=== PATIENT | male | born 1965 | race Caucasian/White ===

== ENCOUNTER 2024-03-01 09:57 | Emergency (ER) | payer OTHER, SELFPAY ==
--- NOTE | ~2024-03-01 | XR_ITS ---
EXAMINATION: XR lumbar spine min 4V DATE: 03/01/2024 11:14 INDICATION: Back pain. Fall. TECHNIQUE: 5 views of lumbar spine were obtained. COMPARISON: None. FINDINGS: Bone alignment is normal. There is mild chronic anterior wedging of T11 and T12 vertebral b odies. There is mildly decreased disc height at L1-L2 and L4-L5 and severely decreased disc height at L5-S1. There are endplate osteophytes at most levels. There is multilevel facet joint osteoarthritis , severe bilaterally at L5-S1. IMPRESSION: 1. Severe lower lumbar spondylosis. Reviewed, dictated and finalized at location A.
[2024-03-01 10:00] VITALS: BP 164/76; PULSE 63; RESP 16; TEMP 36.6; O2SAT 100
[2024-03-01] MEDS: KETOROLAC 30 MG/ML VIAL (*BKC) IM (10:53)
--- NOTE | 2024-03-01 12:45 | ED.BACK ---
HPI - Back Pain/Injury General Chief Complaint: Back Pain/Injury Stated Complaint: Fall, back pain Time Seen by Provider: 03/01/24 10:21 Source: patient Mode of arrival: ambulatory Limitations: no limitations History of Present Illness HPI Narrative: 58-year-old otherwise healthy here with complaints of right-sided lower back pain for past 1 week. Patient states that while he was getting up from a couch he accidentally hit his lower back to the armchair had pain for a day or so was feeling better he drove himself to [place] with minimal pain was max yesterday afternoon was lifting heavy objects started having pain since this morning. She denies any bladder or bowel incontinence no tingling sensation. Patient states that he was taking diclofenac had some relief however has not taken any medication this morning. MD elicited complaint: back pain Pertinent past history: recent trauma Onset (ago): week(s) (1) Timing: constant Severity: moderate Quality: aching Location: lumbar spine Exacerbating factors: movement Relieving factors: none Context: while lifting Associated symptoms: denies other symptoms Related Data Allergies Allergy/AdvReac Type Severity Reaction Status Date / Time No Known Allergies Allergy Verified 03/01/24 09:58 Review of Systems Review of Systems: All systems reviewed & are unremarkable except as noted in HPI and below Constitutional: Constitutional: Reports no additional constitutional complaints Eyes: Eyes: Reports no additional eye complaints ENT: Reports system reviewed and no additional complaints, except as documented Cardiovascular: Cardiovascular: Reports no additional cardiovascular complaints Respiratory: Respiratory: Reports no additional respiratory complaints Gastrointestinal: Gastrointestinal: Reports no additional gastrointestinal complaints Musculoskeletal: Musculoskeletal: Reports as per HPI Neurologic: Reports system reviewed and no additional complaints, except as documented Exam Narrative: GENERAL: Well-appearing, well-nourished, and in no acute distress. HEAD: Normocephalic, atraumatic. EYES: PERRLA and EOMI. ENT: Nares clear, no rhinorrhea or epistaxis. Mucous membranes moist. NECK: Supple. CHEST: Clear to auscultation. No respiratory distress. HEART: Regular rate and rhythm. No murmur heard. Normal peripheral pulses. ABDOMEN: Soft, nontender, nondistended, normal active bowel sounds. EXTREMITIES: Normal range of motion. No edema. Back no vertebral point tenderness pain and the right infrarenal area, no rash SKIN: Warm, dry, no rash. NEURO: No focal deficits. Alert and oriented x3. PSYCH: Normal mood and affect. Course Course Emergency Course: Notified patient about his x-ray findings his pain is mildly improved. I advised him to take pain medication as prescribed do not lift any heavy objects for the next 1 week or so. Follow with the primary doctor. He feels comfortable going home Vital Signs Vital signs: Vital Signs Temperature 36.6 C 03/01/24 10:00 Pulse Rate 63 03/01/24 10:00 Respiratory Rate 16 03/01/24 10:00 Blood Pressure 164/76 H 03/01/24 10:00 Pulse Oximetry 100 03/01/24 10:00 Oxygen Delivery Room Air 03/01/24 10:00 Temperature 36.6 C 03/01/24 10:00 Pulse Rate 63 03/01/24 10:00 Respiratory Rate 16 03/01/24 10:00 Blood Pressure 164/76 H 03/01/24 10:00 Pulse Oximetry 100 03/01/24 10:00 Oxygen Delivery Room Air 03/01/24 10:00 MDM - Back Pain/Injury Differential Diagnosis Differential diagnosis: Likely lumbar radiculopathy, sciatica and strain of lumbar region Imaging Data Radiologist's impression: ITS Impressions Lumbar Spine X-Ray 03/01/24 12:21 IMPRESSION: 1. Severe lower lumbar spondylosis. Discharge Plan Discharge Clinical Impression: Strain of lumbar region Qualifiers: Encounter type: initial encounter Qualified Code(s): S39.012A - Strain of muscle, fascia and tend
== END 2024-03-01 12:58 | disposition home or self-care (01) ==
PROVIDERS: Emergency Provider Family Medicine
DX: S39.012A Strain of muscle, fascia and tendon of lower back, initial encounter (principal); M47.816 Spondylosis without myelopathy or radiculopathy, lumbar region; X50.0XXA Overexertion from strenuous movement or load, initial encounter
CPT/HCPCS: 72110; 96372; 99283; J1885